=== PATIENT | female | born 2000 | race African-American/Black ===

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

== ENCOUNTER 2024-11-25 18:06 | Emergency (ER) | payer OTHER ==
[2024-11-25 18:15] VITALS: TEMP 98.6; BMI 21.7
[2024-11-25 19:31] LABS: MCHC 28.3 g/dl (32.2-35.5); MEAN CELL VOLUME 70.3 fl (79.4-94.8); MEAN PLT VOLUME 9.1 fl (9.4-12.3); RDW 17.4 % (12.1-16.5)
[2024-11-25 19:34] LABS: ALK PHOS 56.0 U/L (45-117); CO2 23.0 mmol/L (21-32); CREATININE 0.7 mg/dl (0.6-1.3); GLUCOSE,RANDOM 99.0 mg/dl (74-106); SGOT/AST 21.0 U/L (15-37); SGPT/ALT 14.0 U/L (7-52); TOT PROT 6.6 g/dl (6.4-8.2)
[2024-11-25 19:42] LABS: INR 1.05 (0.83-1.09); PROTHROMBIN TIME (PATIENT) 11.7 SEC (9.7-13.0)
[2024-11-25 19:45] LABS: ACTIVATED PTT 27.1 SECONDS (25.2-36.5)
[2024-11-26 00:11] VITALS: BP 108/67; PULSE 88; RESP 16
== END 2024-11-26 00:13 | disposition left against medical advice (07) ==
LOC: FER 18:06
DX: D64.9 Anemia, unspecified (principal); R00.0 Tachycardia, unspecified
CPT/HCPCS: 36415; 76801-TC; 80053; 81025; 84702; 84703; 85025; 85610; 85730; 86850; 86900; 86901; 99284-25